=== PATIENT | female | born 1955 | race Caucasian/White ===

== ENCOUNTER → 2016-07-03 | Outpatient (CLI) | payer BC | END | disposition home or self-care (01) | LOC: NUC 13:48 | DX: C50.911 Malignant neoplasm of unspecified site of right female breast (principal) | CPT/HCPCS: 78195; A9541 ==

== ENCOUNTER 2016-07-04 05:46 | Day surgery (SDC) | payer BC ==
[~2016-07-04] VITALS: Ht 165.1 cm; Wt 118.0 kg
[2016-07-04 06:28] VITALS: BP 131/58
[2016-07-04 12:45] VITALS: BP 161/73
[2016-07-04 13:45] VITALS: BP 143/72
[2016-07-04 15:00] VITALS: BP 134/66
== END 2016-07-04 15:15 | disposition home or self-care (01) ==
LOC: SDC 05:46
DX: C50.411 Malignant neoplasm of upper-outer quadrant of right female breast (principal); Z17.0 Estrogen receptor positive status [ER+]; Z68.42 Body mass index [BMI] 45.0-49.9, adult; Z80.8 Family history of malignant neoplasm of other organs or systems; Z88.1 Allergy status to other antibiotic agents
CPT/HCPCS: 78999; 88305; 88307; J0131; J1100; J1170; J2250; J2405; J3010; S0020